=== PATIENT | male | born 1965 | race Caucasian/White ===

== ENCOUNTER 2022-06-28 09:51 | Outpatient (CLI) | payer OTHER, SELFPAY | END 2022-06-28 09:52 | disposition home or self-care (01) | LOC: OP CLINIC 09:53 | PROVIDERS: Visit Provider Surgery | DX: Z12.11 Encounter for screening for malignant neoplasm of colon (principal); K63.5 Polyp of colon; K57.30 Diverticulosis of large intestine without perforation or abscess without bleeding; Z86.010 Personal history of colon polyps | CPT/HCPCS: 45385; 88305; 99153; J2250; J3010 ==

== ENCOUNTER 2023-06-10 16:30 | Outpatient (CLI) | payer OTHER, SELFPAY | END 2023-06-10 16:31 | disposition home or self-care (01) | PROVIDERS: Visit Provider Family Medicine | DX: M25.571 Pain in right ankle and joints of right foot (principal) | CPT/HCPCS: 84550; 86140; 86618 ==